=== PATIENT | female | born 1975 | race Caucasian/White ===

== ENCOUNTER → 2016-08-01 | Outpatient (CLI) | payer BC ==
[~2016-08-01] MED LIST: GADAVIST IV PRN; PRENTAB26 PO
--- NOTE | 2016-08-01 20:47 | DIAGNOSTIC IMAGING REPORT ---
MRI OF THE BRAIN WITHOUT AND WITH IV CONTRAST CLINICAL HISTORY: Left-sided facial numbness, left arm weakness. COMPARISON STUDY: No previous studies for comparison. TECHNIQUE: MRI of the brain was performed from the vertex to the skull base utilizing various T1 and T2 weighted sequences. Following the IV administration of 6 mL of Gadavist contrast, additional enhanced images were obtained. FINDINGS: Sagittal T1, axial diffusion, proton density and T2 weighted axial, coronal FLAIR, and pre and post axial T1-weighted images were acquired. These were supplemented with post gadolinium coronal T1 weighted images. No intra or extra-axial mass lesions are visualized. Axial diffusion-weighted images reveal no evidence of acute or subacute infarction. There is no evidence of ventricular dilatation. Proton density T2-weighted and FLAIR images reveal no significant intraparenchymal signal abnormalities. There are no abnormal flow voids. There is an equivocal tiny right frontal developmental venous anomaly. IMPRESSION: 1. No acute intracranial findings 2. No evidence of acute or subacute infarction 3. No evidence of intracranial mass Electronically signed by: Antonio Pereira M.D. 08/01/2016 8:46 PM Dictated Date/Time: 08/01/2016 8:40 PM
[2016-08-01 20:52] LABS: BASO % 0.4 %; BASO ABS # 0.03 K/uL (0-0.2); COMPLETE YES; EOS % 2.6 %; IG% 0.1 %; LYMPH % 37.7 %; LYMPH ABS # 2.73 K/uL (1.2-3.4); MEAN CELL VOLUME 88.3 fL (80-100); MEAN CORPUSCULAR HEMOGLOBIN 30.3 pg (25-34); MEAN CORPUSCULAR HGB CONC 34.3 g/dl (32-36); MEAN PLATELET VOLUME 9.4 fL (7.4-10.4); MONO % 8.4 %; NEUT % 50.8 %; PLATELET COUNT 217 K/uL (130-400); RED BLOOD COUNT 5.32 M/uL (4.2-5.4); WHITE BLOOD COUNT 7.24 K/uL (4.8-10.8)
[2016-08-01 21:08] LABS: BLOOD UREA NITROGEN 11 mg/dl (7-18); BUN/CREATININE RATIO 14.3 (10-20); CALCIUM 9.4 mg/dl (8.5-10.1); CARBON DIOXIDE 28 mmol/L (21-32); CHLORIDE 105 mmol/L (98-107); CREATININE 0.75 mg/dl (0.60-1.20); GLUCOSE 78 mg/dl (70-99); SODIUM 140 mmol/L (136-145)
[2016-08-01 22:06] LABS: LYME DISEASE AB IGG NEG (NEG); LYME DISEASE AB IGM NEG (NEG)
[2016-08-03 11:01] LABS: C-REACTIVE PROT HIGHSEN 0.7 MG/L
== END | disposition home or self-care (01) ==
LOC: C.MRI 19:36
PROVIDERS: ATTEND Family Medicine
DX: R29.818 Other symptoms and signs involving the nervous system (principal); R20.0 Anesthesia of skin; M62.81 Muscle weakness (generalized)

== ENCOUNTER → 2016-11-16 | Outpatient (CLI) | payer BC ==
[~2016-11-16] MED LIST changes: -GADAVIST IV PRN
== END | disposition home or self-care (01) ==
LOC: C.PAPS 09:00
PROVIDERS: ATTEND Obstetrics & Gynecology
DX: Z01.419 Encounter for gynecological examination (general) (routine) without abnormal findings (principal); Z11.51 Encounter for screening for human papillomavirus (HPV)

== ENCOUNTER → 2017-03-07 | Outpatient (CLI) | payer BC ==
--- NOTE | 2017-03-07 12:43 | MAMMOGRAPHY REPORT ---
BILATERAL DIGITAL SCREENING MAMMOGRAM TOMOSYNTHESIS WITH CAD: 03/07/2017 CLINICAL HISTORY: Routine screening. TECHNIQUE: Bilateral breast tomosynthesis in addition to standard 2D mammography was performed. Curre nt study was also evaluated with a Computer Aided Detection (CAD) system. COMPARISON: Comparison is made to exams dated: 01/28/2013 mammogram - [facility], mammogram, 01/23/2012 mammogram, and 10/18/2011 mammogram. BREAST COMPOSITION: The tissue of both breasts is heterogeneously dense, which may obscure small mas ses. FINDINGS: There is a possible new grouping of microcalcifications in the 6:00 anterior right breast, for which additional spot magnification views are recommended. No other suspicious mass, architectural distortion or cluster of microcalcifications is seen. IMPRESSION: ACR BI-RADS CATEGORY 0: INCOMPLETE EVALUATION: NEED ADDITIONAL IMAGING EVALUATION The possible new grouping of microcalcifications in the 6:00 anterior right breast needs additional e valuation. The patient will be called to schedule an appointment. Approximately 10% of breast cancers are not detected with mammography. A negative mammographic report should not delay biopsy if a clinically suggestive mass is present. Sharmila Lugo M.D. ay/:03/07/2017 10:09:05 Wet Washer Machine: Werner VALDEZ(R)(M), [facility] letter sent: Addl Imaging 0 BI-RADS Code: ACR BI-RADS Category 0: Incomplete Evaluation: Need Additional Imaging Evaluation
== END | disposition home or self-care (01) ==
LOC: C.MAMM 09:40
PROVIDERS: ATTEND Obstetrics & Gynecology
DX: Z12.31 Encounter for screening mammogram for malignant neoplasm of breast (principal); R92.8 Other abnormal and inconclusive findings on diagnostic imaging of breast

== ENCOUNTER → 2017-03-12 | Outpatient (CLI) | payer BC ==
--- NOTE | 2017-03-13 17:16 | MAMMOGRAPHY REPORT ---
UNILATERAL RIGHT DIGITAL DIAGNOSTIC MAMMOGRAM: 03/12/2017 CLINICAL HISTORY: 42 year-old called back from screening mammography for grouped microcalcifications in the 6:00 anterior subareolar right breast. Family history of breast cancer = mother. TECHNIQUE: Spot magnification right CC, ML and spot compression tomosynthesis ML views were obtained . COMPARISON: Comparison is made to exams dated: 03/07/2017 mammogram, 01/28/2013 mammogram - [facility], 01/23/2012 mammogram, 01/23/2012 mammogram, and 10/18/2011 mammogram. BREAST COMPOSITION: The tissue of the right breast is heterogeneously dense, which may obscure small masses. FINDINGS: There are new grouped microcalcifications in a linear distribution measuring 8.5 mm within the 6:00 anterior subareolar right breast, just deep to the dermis on the spot magnification ML view . An additional spot compression tomosynthesis view was performed to assess if these could possibly represent dermal calcifications, but this extra view confirms they are within the breast itself. Whe n reviewing and comparing to prior mammograms, these are new compared to the 2013 mammograms and ther efore indeterminate. Definitive characterization with tissue sampling is recommended. Given the location of the calcifications just below the dermis, these may calcifications are not amen able to stereotactic guided biopsy and would therefore require a surgical excisional biopsy with preo perative needle localization. This was discussed with the patient at the time of diagnostic workup o n 03/12/2017, and further via telephone on 03/13/2017. The images were reviewed by second breast april ging radiologist the recommendations were made in concurrence. The patient is unsure if she wants to undergo surgical biopsy and may prefer to follow the calcificat ions closely. If that is the case, I recommend she at least meet with a surgeon to review the images and discuss options as my recommendation is to biopsy given the interval development and strong fami ly history. Upon further review of prior imaging, it was previously recommended to follow a circumscribed 4 mm ma ss in the lateral left breast. This mass has not significantly changed and is stable on the current full-field left mammogram from 03/07/2017 and with greater than 4 years of stability is considered be nign. IMPRESSION: ACR BI-RADS CATEGORY 4: SUSPICIOUS Right breast surgical excisional biopsy with preoperative localization is recommended for a new 8.5 m m grouping of microcalcifications in the 6:00 anterior subareolar and subdermal right breast. Please see above discussion for full detail. Approximately 10% of breast cancers are not detected with mammography. A negative mammographic report should not delay biopsy if a clinically suggestive mass is present. Sharmila Lugo M.D. ay/:03/13/2017 16:57:12 Sales Market Leader: Lisa Abad RT(R)(M), [facility] letter sent: Abnormal 4/5 BI-RADS Code: ACR BI-RADS Category 4: Suspicious
== END | disposition home or self-care (01) ==
LOC: C.MAMM 08:28
PROVIDERS: ATTEND Obstetrics & Gynecology
DX: R92.0 Mammographic microcalcification found on diagnostic imaging of breast (principal)

== ENCOUNTER → 2017-10-08 | Outpatient (CLI) | payer OTHER ==
--- NOTE | 2017-10-08 12:51 | MAMMOGRAPHY REPORT ---
UNILATERAL RIGHT DIGITAL DIAGNOSTIC MAMMOGRAM TOMOSYNTHESIS WITH CAD: 10/08/2017 CLINICAL HISTORY: 42-year-old woman presents for a close follow-up in the right breast. She is 7 mon ths status post surgical excision of calcifications in the subareolar right breast which yielded mary gn pathology results. TECHNIQUE: Right breast tomosynthesis in addition to standard 2D mammography was performed. Current yunier gary was also evaluated with a Computer Aided Detection (CAD) system. COMPARISON: Comparison is made to exams dated: 03/12/2017 mammogram, 03/07/2017 mammogram, 01/28/2013 ul trasound, 01/28/2013 mammogram - [facility], 01/23/2012 mammogram, and 10/18/2011 mamm ogram. BREAST COMPOSITION: The tissue of the right breast is extremely dense, which lowers the sensitivity of mammography. FINDINGS: A linear scar marker overlies the periareolar right breast, denoting the area of recent lorie gical excisional biopsy. There are approximately 3 round and punctate microcalcifications in the rig ht breast, without current evidence of a suspicious grouping or cluster of calcifications. No suspic ious masses, asymmetries or areas of distortion. Recommend return to annual screening mammography sc hedule. IMPRESSION: ACR BI-RADS CATEGORY 2: BENIGN New postsurgical changes in the subareolar right breast, without mammographic evidence of malignancy. Return to annual mammogram screening schedule is recommended. The patient has been verbally notifi ed of the results. Approximately 10% of breast cancers are not detected with mammography. A negative mammographic report should not delay biopsy if a clinically suggestive mass is present. Sharmila Lugo M.D. ay/:10/08/2017 09:43:07 Conveyor Monitor: Lisa Pedraza, [facility] letter sent: Normal 1/2 BI-RADS Code: ACR BI-RADS Category 2: Benign
== END | disposition home or self-care (01) ==
LOC: C.MAMM 09:19
PROVIDERS: ATTEND Surgery
DX: R92.1 Mammographic calcification found on diagnostic imaging of breast (principal)

== ENCOUNTER → 2017-11-18 | Outpatient (CLI) | payer OTHER | END | disposition home or self-care (01) | LOC: C.PAPS 11:39 | PROVIDERS: ATTEND Obstetrics & Gynecology | DX: Z12.4 Encounter for screening for malignant neoplasm of cervix (principal) ==